=== PATIENT | male | born 1990 | race Caucasian/White ===

== ENCOUNTER 2024-01-01 17:55 | Emergency (ER) | payer MEDICAID ==
[~2024-01-01] VITALS: Ht 175.3 cm; Wt 77.0 kg
[2024-01-01 17:57] VITALS: BP 128/62; PULSE 113; RESP 16; TEMP 98.5; O2SAT 98
== END 2024-01-01 18:20 | disposition left against medical advice (07) ==
LOC: ER 17:55
DX: R56.9 Unspecified convulsions (principal)
CPT/HCPCS: 99283